=== PATIENT | male | born 1995 | race Caucasian/White ===

== ENCOUNTER 2018-08-12 18:28 | Emergency (ER) | payer BC ==
[2018-08-12] MEDS ORDERED: Acetaminophen 500 MG TAB ONE (19:05)
[2018-08-12] MEDS ORDERED: Dexamethasone 10 MG/ML VIAL ONE (19:05)
== END 2018-08-12 19:20 | disposition home or self-care (01) ==
LOC: SCSER 18:28
DX: J02.9 Acute pharyngitis, unspecified (principal); F17.220 Nicotine dependence, chewing tobacco, uncomplicated; Z79.899 Other long term (current) drug therapy
CPT/HCPCS: 87081; 87430; 99283; J1100